=== PATIENT | female | born 1975 | race Caucasian/White ===

== ENCOUNTER 2016-05-20 09:34 | Emergency (ER) | payer BC ==
[2016-05-20 09:52] VITALS: BP 104/70
--- NOTE | 2016-05-21 18:20 | UC ---
drew Flores Timothy, scribed for Linda Agustin MD on 05/20/16 at 1007 . HPI Febrile Illness - HPI Summary HPI Summary: Lisa Fabian is a 40 yo female presenting to [facility] with 2/10 sore throat, cough , fever, and chills since 05/19/16, Pt is also 8 months , with no complications. She states she worked a 16-17 hour shift on 05/18/16, which may have instigated her Sx. She called her OBGYN who recommended Pt present to [facility] for flu tests and for her to start tamiflu if positive. Her MHx includes thyroiditis. - History of Current Complaint Chief Complaint: UCGeneralIllness Time Seen by Provider: 05/20/16 10:21 Hx Obtained From: Patient Onset/Duration: Started Days Ago, Still Present Timing: Constant, Lasting Days Initial Severity: Moderate Current Severity: Moderate Pain Intensity: 2 Pain Scale Used: 0-10 Numeric Aggravating Factors: Nothing Alleviating Factors: Nothing Associated Signs and Symptoms: Chills, Cough, Sore Throat - Risk Factors Pseudomonas Risk Factors: Negative Serious Bacterial Infection Risk Factors: Negative - Allergy/Home Medications Allergies/Adverse Reactions: Allergies Allergy/AdvReac Type Severity Reaction Status Date / Time Peanut-containing Drug Allergy Hives Verified 05/20/16 09:47 Products Home Medications: Home Medications Acetaminophen TAB* [Tylenol TAB*] 1 tab PRN 05/20/16 [History] PMH/Surg Hx/FS Hx/Imm Hx Endocrine/Hematology History: Reports: Hx Thyroid Disease - history of thyroiditis Cardiovascular History: Denies: Hx Hypertension - Surgical History Surgery Procedure, Year, and Place: d&c 2012 Infectious Disease History: No Infectious Disease History: Denies: Hx Clostridium Difficile, Hx Hepatitis, Hx of Known/Suspected MRSA, Hx Shingles, Hx Tuberculosis, Hx Known/Suspected VRE, Hx Known/Suspected VRSA, History Other Infectious Disease, Traveled Outside the [place] in Last 30 Days - Family History Known Family History: Negative: Cardiac Disease - Social History Lives: With Family Alcohol Use: None Substance Use Type: Reports: None Smoking Status (MU): Never Smoked Tobacco Have You Smoked in the Last Year: No Review of Systems Constitutional: Fever, Chills Skin: Negative Eyes: Negative ENT: Sore Throat Respiratory: Cough Cardiovascular: Negative Gastrointestinal: Negative Genitourinary: Negative Motor: Negative Neurovascular: Negative Musculoskeletal: Negative Neurological: Negative Psychological: Negative All Other Systems Reviewed And Are Negative: Yes Physical Exam Triage Information Reviewed: Yes Appearance: No Pain Distress, Well-Nourished, Ill-Appearing, Other: - Vital Signs: Initial Vital Signs Temp 98.2 F 05/20/16 09:48 Pulse 96 05/20/16 09:48 Resp 18 05/20/16 09:48 BP 104/70 05/20/16 09:48 Pulse Ox 97 05/20/16 09:48 Vital Signs Reviewed: Yes Eyes: Positive: Conjunctiva Clear ENT: Positive: Hearing grossly normal, Pharynx normal, TMs normal. Negative: Muffled/hoarse voice Neck: Positive: Supple, Nontender Respiratory: Positive: Chest non-tender, Lungs clear, Normal breath sounds, No respiratory distress Cardiovascular: Positive: RRR, No Murmur, Pulses Normal, Brisk Capillary Refill Abdomen Description: Positive: Nontender, Soft, Other: - gravid abdomen. Baby is kicking and moving normally per mother. Bowel Sounds: Positive: Present Musculoskeletal: Positive: Strength Intact, ROM Intact Neurological: Positive: Alert, Muscle Tone Normal Psychological Exam: Normal Skin Exam: Other - diaphoretic Course/Dx - Course Assessment/Plan: Lisa Fabian is a 40 yo 8 month female presenting to [facility] with sore throat, cough, and fever, presenting after consulting with her OBGYN who recommended that she be tested for flu. After negative strep tests, and positive rapid influenza A test, she will be discharged home with influenza A, tamiflu per her OB provider's advice and appropriate instructions. Pt is aware that tamiflu is category C, and agrees with her OB provider, that the risks of tamiflu treatment are worth the benefits of influenza treatment. - Febrile Illness Differential Diagnoses: Fever of Unknown Origin, Sepsis, Viremia, Other: - influenza - Diagnoses Clinic Provider Diagnoses: influenza A Is Visit Related: No - no vag bleeding, no cramping, baby moving and kicking as per normal Discharge - Discharge Plan Condition: Stable Disposition: HOME Prescriptions: Oseltamivir CAP* [Tamiflu CAP*] 75 mg PO BID #10 cap Patient Education Materials: Influenza (ED) Forms: *Work Release Referrals: Bhupinder Rodarte MD [Medical Doctor] - 2 Days Additional Instructions: Please follow up with with your OBGYN regarding your visit to urgent care today. Return to urgent care or the emergency department with any new or recurring symptoms. The documentation as recorded by the drew colvin Timothy accurately reflects the service I personally performed and the decisions made by me, Linda Agustin MD.
== END 2016-05-20 11:12 | disposition home or self-care (01) ==
LOC: UCEAST 09:34
DX: J10.1 Influenza due to other identified influenza virus with other respiratory manifestations (principal); Z34.93 Encounter for supervision of normal pregnancy, unspecified, third trimester; E06.9 Thyroiditis, unspecified
CPT/HCPCS: 87502; 87651; 99212; G0463

== ENCOUNTER 2016-06-11 10:38 | Inpatient (IN) | payer BC ==
[2016-06-11 11:26] LABS: ROM Internal QC QC Line Present
[2016-06-11] MEDS ORDERED: Lidocaine 1% MPF* 2 ML VIAL ONE (12:07)
[2016-06-11 12:50] LABS: Hematocrit 37 % (35-47); Hemoglobin 12.3 g/dl (12.0-16.0); Mean Corpuscular HGB Conc 33 g/dl (31-36); Mean Corpuscular Hemoglobin 29 pg (27-31); Mean Corpuscular Volume 88 fL (80-97); Mean Platelet Volume 11 um3 (7.4-10.4); Red Blood Count 4.19 10^6/ul (4.0-5.4); Red Cell Distribution Width 14 % (10.5-15); White Blood Count 10.6 10^3/ul (3.5-10.8)
[2016-06-11] MEDS ORDERED: Oxytocin in LR* 20 UNITS/1,000 ML BAG IVPB SCH ×2 (15:00→23:45)
[2016-06-11] MEDS ORDERED: OBEPIDURAL* 250 ML ONE (19:44)
[2016-06-11] MEDS ORDERED: Phenylephrine IV* 40 MCG/ML 10 ML SYRINGE IV PUSH PRN ×2 (20:12)
[2016-06-11] MEDS ORDERED: Sodium Citrate/Citric Acid* 15 ML UDC PO PRN (20:12)
[2016-06-11] MEDS ORDERED: OBEPIDURAL* 250 ML EPIDURAL SCH (21:00)
[2016-06-11] MEDS ORDERED: Acetaminophen TAB* 325 MG PO PRN (23:46)
[2016-06-11] MEDS ORDERED: Witch Hazel PAD* JAR TOPICAL PRN (23:46)
[2016-06-11] MEDS ORDERED: oxyCODONE/Acetamin 5/325 MG* TAB PO PRN (23:46)
[2016-06-11] MEDS ORDERED: Dibucaine 1% 28.35 GM TUBE PR PRN (23:46)
[2016-06-11] MEDS ORDERED: Glycerin ADULT SUPP PR PRN (23:46)
[2016-06-12] MEDS: Ibuprofen TAB* 600 MG PO PRN ×4 (02:12→19:49)
[2016-06-12] MEDS: Docusate CAP* 100 MG PO SCH ×3 (07:55→21:02)
[2016-06-12] MEDS ORDERED: Simethicone CHEW TAB* 80 MG PO SCH (08:30)
[2016-06-12] MEDS ORDERED: Ferrous Gluconate TAB* 324 MG TAB PO SCH (09:00)
[2016-06-12 10:30] LABS: Hematocrit 34 % (35-47); Hemoglobin 11.2 g/dl (12.0-16.0); Mean Corpuscular HGB Conc 33 g/dl (31-36); Mean Corpuscular Hemoglobin 30 pg (27-31); Mean Corpuscular Volume 89 fL (80-97); Mean Platelet Volume 11 um3 (7.4-10.4); Red Cell Distribution Width 14 % (10.5-15); White Blood Count 13.9 10^3/ul (3.5-10.8)
[2016-06-13] MEDS: Docusate CAP* 100 MG PO SCH ×2 (09:10→15:29)
[2016-06-13] MEDS: Ibuprofen TAB* 600 MG PO PRN (09:12)
[2016-06-13 16:18] VITALS: BP 115/71
== END 2016-06-13 19:05 | disposition home or self-care (01) | DRG 560 ==
LOC: MCHOBOUT 10:38 → MCHOB 11:33
PROVIDERS: ADMIT Midwife; ATTEND Midwife
PROC: 10E0XZZ Delivery of Products of Conception, External Approach (ICD-10-PCS; principal; 2016-06-11)
PROC: 10907ZC Drainage of Amniotic Fluid, Therapeutic from Products of Conception, Via Natural or Artificial Opening (ICD-10-PCS; 2016-06-11)
PROC: 4A1HX4Z Monitoring of Products of Conception, Cardiac Electrical Activity, External Approach (ICD-10-PCS; 2016-06-11)
DX: O69.81X0 Labor and delivery complicated by cord around neck, without compression, not applicable or unspecified (principal); O09.523 Supervision of elderly multigravida, third trimester; Z3A.37 37 weeks gestation of pregnancy; Z37.0 Single live birth; O69.89X0 Labor and delivery complicated by other cord complications, not applicable or unspecified
CPT/HCPCS: 36415; 84112; 85025; 86850; 86900; 86901; 87070; A9270-GY

== ENCOUNTER 2018-06-08 12:01 | Inpatient (IN) | payer BC, OTHER ==
--- NOTE | 2018-06-08 12:45 | HP ---
General Information - Reason for Visit IUP at 39-6/7 here for term induction due to AMA, age 42 - General Information Maternal Age: 42 Grav: 5 Para: 2 SAB: 2 IEA: 0 Estimated Due Date: 06/09/18 Determined By: LMP Gestational Age in Weeks/Days: 39-6/7 Maternal Blood Type and Rh: B Positive - Results this Serology/RPR Result: Non-Reactive Rubella Result: Immune HBsAg Result: Negative HIV Result: Negative GBS Culture Result: Negative Past Medical History Delivery History: Hx Uncomplicated Vaginal Delivery Delivery History Comment: 06/2014 8lbs male. Delivered at [place] by Nancy Bradley CNM 05/2016 7lbs 12oz female. Delivered at [place] by Lawanda Chirinos CNM Pertinent Past Medical History: Non-Contributory Pertinent Past Surgical History: See Records Past Surgical History Comment: 04/2013 D&C following SAB Pertinent Family History: See Records Family History Comment: Mother DM type 2 MGM . Liver cancer Note: Father and father's family histories unknown to pt - Antepartal Records Antepartal Records: Reviewed, Complicated by: - AMA age 42 at [facility] Review of Systems Constitutional: Comfortable CV Complaint: No Respiratory: Shortness of Breath: No Gastrointestinal: No Nausea/Vomiting, Normal Bowel Movement Genitourinary: No Dysuria, No Bleeding, No Leaking Fluid Musculoskeletal: No Complaint, No Epigastric Pain Neurological: No Headache, No Visual Changes Movement: Normal Exam Allergies/Adverse Reactions: Allergies peanut Allergy (Verified 06/08/18 12:23) Rash BP 115/78 HR 80 RR 20 T 97.6 - Measurements Height: 5 ft 4 in Weight: 220 lb Weight in lbs: [phone] Body Mass Index (BMI): 37.8 Pre- Weight: 180 lb Weight Gained This : 40 lbs and 0 ozs - Exam Breast: Breast Exam Deferred CVA: No CVA Tenderness Extremities: No Edema Heart: Normal Rhythm/Heart Sounds HEENT: No Significant Findings Lungs: Clear Bilaterally Rectal: Rectal Exam Deferred Thyroid: No Thyromegaly - Abdominal Exam Abdomen Exam: Non-Tender, Fundal Height Consistent with Dates - Ultrasound/Biophysical Profile Ultrasound Status: Not Done Targeted Exam Findings See L&D Outpatient Visit Provider Note for Findings: N/A Estimated Weight: EFW 7.5-8lbs by Paul Cervical Exam: 3cm, 4cm Effacement: 50% Station: -2 Presenting Part: Vertex Membrane Status: Intact Sterile Speculum Exam: Not done Bleeding/Discharge: None EFM Findings - External Monitor Findings Baseline Heart Rate: 120 External Monitor Findings: Accelerations Present, No Pattern of Variable or Late Decelerations, Variability Moderate, Baseline Stable External Monitor Findings Comment: No evidence of metabolic acidemia Contractions: Irregular - 1 in 30 minutes, Mild Assessment/Plan - Assessment IUP at 39-6/7 here for term induction due to AMA Cervix favorable for induction No evidence of metabolic acidemia - Plan Plan: Induction Plan Comment: Counseled for trial IV pitocin in presence of favorable cervix. Pt and FOB agree. Consider AROM PRN. Pt will request an epidural when uncomfortable. Planning cord blood collection with delivery. Anticipate - Date/Time of Admission Date of Admission: 06/08/18 Time of Admission: 12:10
[2018-06-08] MEDS ORDERED: Lactated Ringers 1000 ML Bag* 1,000 ML IV SCH ×4 (13:00→23:00)
[2018-06-08] MEDS ORDERED: Oxytocin in LR* 20 UNITS/1,000 ML BAG IVPB SCH ×2 (13:00→23:00)
[2018-06-08 13:49] LABS: ABS Basophils 0 10^3/ul (0-0.2); ABS Eosinophils 0 10^3/ul (0-0.6); ABS Lymphocytes 1.5 10^3/ul (1.0-4.8); ABS Monocytes 0.6 10^3/ul (0-0.8); ABS Neutrophils 6.5 10^3/ul (1.5-7.7); ABS Nucleated RBC 0 10^3/ul; Eosinophil % 0.5 %; Hematocrit 37 % (33-41); Hemoglobin 12.9 g/dL (12.0-16.0); Lymphocyte % 16.9 %; Mean Corpuscular HGB Conc 35 g/dL (31-36); Mean Corpuscular Hemoglobin 31 pg (27-31); Mean Corpuscular Volume 90 fL (80-97); Mean Platelet Volume 11.3 fL (7.4-10.4); Nucleated Red Blood Cells % 0.1; Platelet Count 115 10^3/uL (150-450); Red Blood Count 4.15 10^6 /uL (3.70-4.87); Red Cell Distribution Width 15 % (10.5-15); White Blood Count 8.6 10^3/uL (3.5-10.8)
[2018-06-08] MEDS ORDERED: OBEPIDURAL* 250 ML EPIDURAL ONE (16:39)
--- NOTE | 2018-06-08 16:45 | PN ---
Progress Note - Progress Note Date of Service: 06/08/18 Note: S: Pt in bed breathing through UCs. Able to rest in between. Interested in discussing timing of epdiural placement O: BP 114/80 HR 76 T 97.3 RR 18 FHT 145bpm. Moderate variability. +Accels. No decels. UCs q 2-4, moderate to firm on 14mu/pitocin VE: 5cm/100%/vtx -2 A: IUP at 39-6/7 in early active labor No evidence of metabolic acidemia P: Pt desires epidural. Anesthesia paged for consult.
[2018-06-08] MEDS ORDERED: Lactated Ringers 1000 ML Bag* 1,000 ML IV ONE (17:07)
[2018-06-08] MEDS ORDERED: Sodium Citrate/Citric Acid* 15 ML UDC PO PRN (17:07)
[2018-06-08] MEDS ORDERED: Famotidine TAB* 20 MG PO PRN (17:07)
[2018-06-08] MEDS ORDERED: Phenylephrine IV* 40 MCG/ML 10 ML SYRINGE IV PUSH PRN (17:07)
[2018-06-08] MEDS ORDERED: OBEPIDURAL* 250 ML EPIDURAL SCH (18:00)
--- NOTE | 2018-06-08 18:10 | PN ---
Progress Note - Progress Note Date of Service: 06/08/18 Note: S: Pt comfortable with CEI in place. While up for epidural experienced SROM to clear fluid and UC intensity increased immediately. O: BP 118/60 HR 68bpm FHT 120bpm. Moderate variability. +Accels. No decels UCs q 2 min VE 8-9cm/100%/vtx -1 A: IUP at 38-6/7 in active labor No evidence of metabolic acidemia P: Enc rest. Anticipate trial of pushing soon
--- NOTE | 2018-06-08 19:20 | PN ---
Progress Note - Progress Note Date of Service: 06/08/18 Note: S: Pt comfortable in bed. Dozing between UCs O: BP 135/88 HR 77 T 97.8 FHT 125bpm. Moderate variability. +Accels. No decels UCs q 2-3, IV pitocin at 6mu/min VE: Anterior lip/100%/vtx -1 A: IUP at 39-6/7 in active labor No evidence of metabolic acidemia P: Maternal positioning for lip of cervix. Anticipate trial of pushing soon
[2018-06-08] MEDS ORDERED: Witch Hazel PAD* JAR TOPICAL PRN (22:44)
[2018-06-08] MEDS ORDERED: Dibucaine 1% 28.35 GM TUBE PR PRN (22:44)
[2018-06-08] MEDS ORDERED: Glycerin ADULT SUPP PR PRN (22:44)
--- NOTE | 2018-06-08 22:52 | PROCNOTE ---
[facility] OB: Delivery Note - Delivery A Date of : 06/08/18 Time of : 22:17 [place] Sex: Male Weight at : 9 lb 9 oz Score 1 Minute: 7 Score 5 Minutes: 8 Gestational Age in Weeks and Days at Delivery: 39 Weeks and 6 Days Delivery Method: Spontaneous Vaginal Labor: Induced Did Patient attempt ?: N/A, No Previous Amniotic Fluid: Clear - with delivery of head thick meconium followed Anesthesia/Analgesia: CEI for Labor - placed by Dr. Dunlap Delivered By: Lawanda Chirinos - Nursery Level of Nursery: Regular/Bedside - Perineum Perineal Injury: Abrasion Only - Not Repaired Perineal Repair: None - Events Delivery Events of Note: Pitocin During Labor - Additional Delivery Notes Additional Delivery Notes: Pt admitted for term induction of labor due to advanced maternal age, age 42. IV pitocin led to onset active labor with spontaneous rupture of membranes to clear fluid. Received labor epidural per preference with excellent relief. Length of labor 6 hours, 5 min. Pushed x 2 hours, 4 min. Due to length of pushing neonatology paged for delivery due to concern re: size and possible shoulder dystocia. liveborn male. Slow, controlled delivery of head after long crown. OA to NORMA. Shoulders followed with strong maternal push. Nuchal cord x 1 and cord around abdomen x 1 both reduced after delivery. initially stunned. Cord clamped x 2 and cut after 30 seconds and infant to warmer for evaluation by neonatology. Apgars 7/8. Spontaneous delivery intact placenta. Membranes complete. Fundus firm to massage with IV pitocin infusing. Minimal bleeding noted. Perineum moderately edematous with small abrasion at base of introitus. Hemostatic and not repaired. EBL 300mL. At time of note mother and infant in stable condition. skin to skin with mother at this time. Planning to breast feed.
[2018-06-09] MEDS: Ibuprofen TAB* 600 MG PO PRN ×4 (01:12→20:53)
[2018-06-09 08:29] LABS: ABS Basophils 0 10^3/ul (0-0.2); ABS Eosinophils 0 10^3/ul (0-0.6); ABS Lymphocytes 1.7 10^3/ul (1.0-4.8); ABS Monocytes 1.1 10^3/ul (0-0.8); ABS Neutrophils 12.4 10^3/ul (1.5-7.7); ABS Nucleated RBC 0 10^3/ul; Eosinophil % 0.2 %; Hematocrit 36 % (33-41); Hemoglobin 11.9 g/dL (12.0-16.0); Lymphocyte % 11.3 %; Mean Corpuscular HGB Conc 34 g/dL (31-36); Mean Corpuscular Hemoglobin 30 pg (27-31); Mean Corpuscular Volume 90 fL (80-97); Mean Platelet Volume 11.5 fL (7.4-10.4); Nucleated Red Blood Cells % 0.1; Platelet Count 115 10^3/uL (150-450); Red Blood Count 3.96 10^6 /uL (3.70-4.87); Red Cell Distribution Width 15 % (10.5-15); White Blood Count 15.3 10^3/uL (3.5-10.8)
[2018-06-09] MEDS ORDERED: Simethicone TAB* 80 MG TAB.CHEW PO SCH (08:30)
[2018-06-09] MEDS ORDERED: Ferrous Gluconate TAB* 324 MG TAB PO SCH (09:00)
[2018-06-09] MEDS: Docusate CAP* 100 MG PO SCH ×3 (09:18→20:53)
[2018-06-09] MEDS: Acetaminophen TAB* 325 MG PO PRN (17:23)
[2018-06-10] MEDS: Acetaminophen TAB* 325 MG PO PRN ×2 (00:18→09:34)
[2018-06-10] MEDS: Ibuprofen TAB* 600 MG PO PRN ×2 (04:02→16:35)
[2018-06-10 07:16] VITALS: BP 117/73
[2018-06-10] MEDS: Docusate CAP* 100 MG PO SCH ×2 (09:34→16:35)
== END 2018-06-10 16:55 | disposition home or self-care (01) | DRG 560 ==
LOC: MCHOBOUT 12:01 → MCHOB 12:07
PROVIDERS: ADMIT Midwife; ATTEND Midwife
PROC: 3E033VJ Introduction of Other Hormone into Peripheral Vein, Percutaneous Approach (ICD-10-PCS; principal; 2018-06-08)
PROC: 10E0XZZ Delivery of Products of Conception, External Approach (ICD-10-PCS; 2018-06-08)
PROC: 4A1HXCZ Monitoring of Products of Conception, Cardiac Rate, External Approach (ICD-10-PCS; 2018-06-08)
DX: O69.81X0 Labor and delivery complicated by cord around neck, without compression, not applicable or unspecified (principal); Z37.0 Single live birth; O69.82X0 Labor and delivery complicated by other cord entanglement, without compression, not applicable or unspecified; O77.0 Labor and delivery complicated by meconium in amniotic fluid; O71.82 Other specified trauma to perineum and vulva; Z91.010 Allergy to peanuts; Z3A.39 39 weeks gestation of pregnancy
CPT/HCPCS: 36415; 85025; 86850; 86900; 86901; A9270-GY

== ENCOUNTER 2020-10-03 10:02 | Inpatient (IN) ==
[2020-10-03] MEDS ORDERED: Lactated Ringers 1000 ml BAG 1,000 ML IV ONE ×2 (10:59→16:01)
[2020-10-03] MEDS ORDERED: Lactated Ringers 1000 ml BAG 1,000 ML IV SCH ×2 (11:00→17:00)
[2020-10-03] MEDS ORDERED: Oxytocin in LR 20 UNITS/1,000 ML BAG IVPB SCH (11:30)
[2020-10-03 12:11] LABS: ABS Eosinophils 0.1 10^3/ul (0-0.6); ABS Lymphocytes 1.8 10^3/ul (1.0-4.8); ABS Monocytes 0.8 10^3/ul (0-0.8); ABS Neutrophils 8.5 10^3/ul (1.5-7.7); Eosinophil % 0.5 %; Hematocrit 36 % (35-47); Lymphocyte % 16.1 %; Mean Corpuscular HGB Conc 33 g/dL (31-36); Mean Corpuscular Hemoglobin 31 pg (27-31); Mean Corpuscular Volume 93 fL (80-97); Platelet Count 173 10^3/uL (150-450); Red Blood Count 3.89 10^6 /uL (3.70-4.87); Red Cell Distribution Width 13 % (10-15); White Blood Count 11.1 10^3/uL (3.5-10.8)
[2020-10-03 12:58] LABS: Urine Benzodiazepine Screen None Detected (None Detect); Urine Cannabinoids Screen None Detected (None Detect); Urine Opiates Screen None Detected (None Detect)
[2020-10-03] MEDS ORDERED: OBEPIDURAL 250 ML EPIDURAL ONE (15:29)
[2020-10-03] MEDS ORDERED: Lactated Ringers 1000 ml BAG 500 ML IV PRN (16:01)
[2020-10-03] MEDS ORDERED: EPHEDrine (Pressors) 50 MG/ML VIAL IV PUSH PRN (16:01)
[2020-10-03] MEDS ORDERED: Sodium Citrate/Citric Acid LIQ 15 ML UDC PO PRN (16:01)
[2020-10-03] MEDS ORDERED: Phenylephrine 40 mcg/mL 10mL (400mcg) SYRINGE IV PUSH PRN (16:01)
[2020-10-03 20:17] LABS: Urine Appearance Clear; Urine Bilirubin Negative (Negative); Urine Blood Negative (Negative); Urine Color Straw; Urine Glucose Negative (Negative); Urine Ketones Negative (Negative); Urine Nitrite Negative (Negative); Urine Protein Negative (Negative); Urine Specific Gravity 1.006 (1.002-1.030); Urine Urobilinogen Negative (Negative)
[2020-10-03] MEDS ORDERED: Ammonia Inhalant 1 EA AMP ONE (20:21)
[2020-10-03] MEDS: Lactated Ringers 1000 ml BAG 1,000 ML IV SCH ×2 (20:35→23:46)
[2020-10-03] MEDS ORDERED: Dibucaine 1% OINT 28.35 GM TUBE PR PRN (20:40)
[2020-10-03 20:53] LABS: ABS Basophils 0.2 10^3/ul (0-0.2); ABS Eosinophils 0.1 10^3/ul (0-0.6); ABS Lymphocytes 2.1 10^3/ul (1.0-4.8); ABS Monocytes 0.8 10^3/ul (0-0.8); ABS Neutrophils 8.1 10^3/ul (1.5-7.7); Eosinophil % 0.5 %; Hematocrit 32 % (35-47); Hemoglobin 10.8 g/dL (12.0-16.0); Mean Corpuscular HGB Conc 34 g/dL (31-36); Mean Corpuscular Hemoglobin 32 pg (27-31); Mean Corpuscular Volume 93 fL (80-97); Mean Platelet Volume 9.8 fL (7.4-10.4); Platelet Count 156 10^3/uL (150-450); Red Cell Distribution Width 14 % (10-15); White Blood Count 11.3 10^3/uL (3.5-10.8)
[2020-10-03] MEDS ORDERED: Gentamicin ADULT 340 MG in NS 0.9% 100 ml BAG 100 ML IVPB ONE (21:00)
[2020-10-03] MEDS: Ampicillin ADVAN 2 GM in NS 0.9% 100 ml BAG 100 ML IVPB SCH (21:17)
[2020-10-03] MEDS: Witch Hazel PAD JAR TOPICAL PRN (21:43)
[2020-10-03] MEDS: Oxytocin in LR 20 UNITS/1,000 ML BAG IVPB SCH (23:28)
[2020-10-04] MEDS: Oxytocin in LR 20 UNITS/1,000 ML BAG IVPB SCH (03:04)
[2020-10-04] MEDS: Ampicillin ADVAN 2 GM in NS 0.9% 100 ml BAG 100 ML IVPB SCH ×4 (03:05→21:22)
[2020-10-04 09:18] LABS: ABS Basophils 0.1 10^3/ul (0-0.2); ABS Eosinophils 0.1 10^3/ul (0-0.6); ABS Lymphocytes 1.7 10^3/ul (1.0-4.8); ABS Neutrophils 13.7 10^3/ul (1.5-7.7); Eosinophil % 0.3 %; Hematocrit 33 % (35-47); Hemoglobin 11.5 g/dL (12.0-16.0); Lymphocyte % 10.1 %; Mean Corpuscular HGB Conc 35 g/dL (31-36); Mean Corpuscular Hemoglobin 31 pg (27-31); Mean Corpuscular Volume 90 fL (80-97); Mean Platelet Volume 9.3 fL (7.4-10.4); Platelet Count 125 10^3/uL (150-450); Red Blood Count 3.66 10^6 /uL (3.70-4.87); Red Cell Distribution Width 14 % (10-15); White Blood Count 16.4 10^3/uL (3.5-10.8)
[2020-10-04] MEDS ORDERED: Lidocaine 1% VIAL 10 MG/ML VIAL ONE (10:31)
[2020-10-04] MEDS: OBEPIDURAL 250 ML EPIDURAL SCH ×2 (13:36→18:32)
[2020-10-05 08:01] VITALS: BP 97/70
[2020-10-05] MEDS: Witch Hazel PAD JAR TOPICAL PRN (12:55)
== END 2020-10-05 13:55 | disposition home or self-care (01) | DRG 541 ==
LOC: MCHOBOUT 10:02 → MCHOB 10:16
PROVIDERS: ADMIT Midwife; ATTEND Midwife